=== PATIENT | female | born 1945 | race Caucasian/White ===

== ENCOUNTER → 2022-11-27 12:20 | Outpatient (CLI) | payer MEDICARE, SELFPAY | PROVIDERS: PCP Nurse Practitioner; Visit Provider Student in an Organized Health Care Education/Training Program | DX: N89.8 Other specified noninflammatory disorders of vagina (principal); N39.0 Urinary tract infection, site not specified | CPT/HCPCS: 87077; 87086; 87186; 87210 ==

== ENCOUNTER → 2022-12-12 08:28 | Outpatient (CLI) | payer MEDICARE, SELFPAY ==
--- NOTE | 2022-12-12 08:29 | DI.US.S_ITS ---
PROCEDURE: US PELVIC COMPLETE INDICATIONS: IUD X 30 YEARS; DISCHARGE TECHNIQUE: Real-time scanning was performed of the pelvic organs, with image documentation. Additional endovaginal scanning was necessary due to incomplete visualization of the adnexal and endometrial structures by transabdominal scanning. COMPARISON: None. FINDINGS: Uterus: Uterus is anteverted and normal in size at 6.4 x 4.2 x 4.1 cm. The myometrium is homogeneous. Endometrium not visualized. The IUD is obliquely oriented, passing into the myometrium. Ovaries: Not visualized due to overlying bowel gas. Other: No pathologic free abdominal or pelvic fluid. IMPRESSION: Abnormal placement of the IUD, which passes into the myometrium. We strive to produce accurate, complete, and clear reports of imaging services. To assist us in improving patient care, this report was composed using standard report templates and voice recognition software. Therefore, it may contain abnormal punctuation, insertions and/or omissions. Occasional wrong-word or sound-alike substitutions may occur. Though we review the report and make efforts to correct it, we do recommend that the report be read carefully in proper context to recognize any text inaccuracies. Dictated by: Skyler Myles M.D. on 12/12/2022 at 9:24 Approved by: Skyler Myles M.D. on 12/12/2022 at 9:26
== END ==
PROVIDERS: PCP Nurse Practitioner; Referring Provider Student in an Organized Health Care Education/Training Program; Visit Provider Student in an Organized Health Care Education/Training Program
DX: N89.8 Other specified noninflammatory disorders of vagina (principal); T83.89XA Other specified complication of genitourinary prosthetic devices, implants and grafts, initial encounter
CPT/HCPCS: 76830; 76856

== ENCOUNTER 2023-03-13 06:28 | Day surgery (SDC) | payer MEDICARE, SELFPAY ==
[2023-02-26 11:26] VITALS: BMI 23.3
[2023-03-13] VITALS (7 sets, daily range): BP systolic 118–154; BP diastolic 62–92; PULSE 106–123; RESP 11–18; TEMP 36–36.6; O2SAT 95–100; BMI 23.3
--- NOTE | 2023-03-13 | PATH_ITS ---
[facility] Accession Number: [id number] No. of containers..01 Tissue . 01 Material submitted: . endometrium - ENDOMETRIAL BIOPSY . 01 Diagnosis: Endometrium, Biopsy: Acute and chronic endometritis. Focal features suggestive of Actinomyces granules. Scant benign, inactive endometrial tissue also present. MRV 03/23/2023 1700 Local . 01 Comment: The findings may be secondary to reported intrauterine contraceptive device (per ICD-10 code Z30.432 on the requisition form). . There is scant benign endometrial tissue with inactive/atrophic changes also present. . Clinical correlation is recommended. . 01 Electronically signed: . Gerardo Gates MD, Pathologist NPI- [id number] . 01 Gross description: . ENDOMETRIAL BIOPSY: Received in formalin are minute fragments of mucoid and hemorrhagic material measuring 2.5 x 2.0 x 0.3 cm in aggregate. Submitted in toto in 1 cassette. /AAY 03/16/2023 0551 Local . 01 Pathologist provided ICD-10: N83.10, Z30.432, T83.39XA . 01 CPT . 248153 Specimen Comment: A courtesy copy of this report has been sent to [phone] Performed at: 01 [facility] [address] [place] [address] [facility], [place], [place] [id number] MD Aristeo Brown MD Phone: [phone]
[2023-03-13] MEDS: LACTATED RINGERS 1,000 ML 100 ML IV (07:24)
--- NOTE | 2023-03-13 07:39 | PM.PREOP ---
Pre-operative Note COVID-19 Criteria for continued procedure: Expected advancement of disease process Interval Note History & Physical reviewed/Exam performed by Physician: Yes Changes to H&P: No
[2023-03-13] MEDS: CEFAZOLIN 2 GM/100 ML PREMIX 100 ML IV (08:07)
--- NOTE | 2023-03-13 08:15 | SUR.OPER ---
Lithotomy on padded OR bed, head on pillow, arms secured on padded arm boards at <90 degrees abduction. Legs secured in padded yellow fins stirrups.
[2023-03-13] MEDS: BUPIVACAINE 0.5% (PF) 30 ML, EPINEPHrine 0.15 MG INJ (08:28)
--- NOTE | 2023-03-13 09:12 | PM.OP.1 ---
Operative Date/Time/Diagnoses Date of procedure: 03/13/23 Time of procedure: 09:13 Pre-op diagnosis: Complete uterovaginal prolapse, retained IUD Post-op diagnosis: same Procedure & Clinicians Procedure: LeFort colpocleisis, endometrial biopsy, failed removal of IUD Same procedure as scheduled: Yes (Unable to remove IUD) Indications: Retained IUD, complete uterovaginal prolapse Surgeon: Flor Owens Click Yes if Unassisted: Yes Anesthesia Type: General Operative Notes Findings: Complete uterovaginal prolapse, retained IUD unable to remove Closure Type: primary Specimen(s): other (Endometrial biopsy) Estimated Blood Loss (mL): 50 Blood products transfused: none Procedure in detail: The patient was brought to the operating room where she was in a supine position in low [facility] stirps and underwent a light general anesthetic. She was prepped and draped in the usual sterile fashion. She would emptied her bladder prior to the case. 2 g of Ancef were in prior to beginning of the case. Warming was in place. Pulsatile stockings were in place. A check system was reviewed with the staff in the room prior to beginning the case. Area on anterior and posterior wall of the prolapse were marked with a marking pen and injected with a dilute solution of half percent Marcaine with epinephrine. The skin was incised with a scalpel and undermined with and removed removed with Metzenbaum scissors and cautery. 0 Vicryl suture interrupted was placed from the anterior cervical fascia to the posterior cervical fascia to invert the cervix. 2-0 Vicryl suture was used in a running fashion to close anterior to posterior on the sides creating a tunnel from the cervix to the external area The vaginal incision was closed from anterior to posterior fully inverting the uterus. The area of the posterior vaginal opening was injected with the dilute solution of Marcaine with epi. A wedge-shaped tissue was taken out of the area. The perineal body was built up with interrupted 0 Vicryl suture. The vaginal incision and skin was closed with 2 0 Vicryl suture. Counts of instruments and sponges were correct. Patient went to recovery room in good condition. Complications: none Post-operative Condition: stable Disposition: same day surgery Plan for aftercare: Home when awake and stable
== END 2023-03-13 10:11 | disposition home or self-care (01) ==
PROVIDERS: PCP Nurse Practitioner; Referring Provider Specialist; Visit Provider Specialist
PROC: (CPT 57120; principal; 2023-03-13 07:45)
DX: N81.3 Complete uterovaginal prolapse (principal); Z30.432 Encounter for removal of intrauterine contraceptive device; T83.39XA Other mechanical complication of intrauterine contraceptive device, initial encounter; I49.8 Other specified cardiac arrhythmias; N71.1 Chronic inflammatory disease of uterus; N71.0 Acute inflammatory disease of uterus
CPT/HCPCS: 57120; 93005; J0171; J0690; J1100; J2405; J2704; J3010

== ENCOUNTER → 2023-05-27 08:43 | Outpatient (CLI) | payer MEDICARE, SELFPAY ==
[2023-05-27 10:43] LABS: Alanine Aminotransferase 19 IU/L (<35); Albumin 4.2 g/dL (3.5-5.0); Albumin Globulin Ratio 1.3 (1.0-2.8); Alkaline Phosphatase 89 U/L (38-126); Aspartate Aminotransferase 28 IU/L (14-36); BUN Creatinine Ratio 19.3 (6-22); Bilirubin Total 0.7 mg/dL (0.2-1.3); Blood Urea Nitrogen 17 mg/dL (7-17); Calcium 9.5 mg/dL (8.4-10.2); Carbon Dioxide 27 mmol/L (22-32); Chloride 104 mmol/L (98-107); Cholesterol 145 mg/dL (140-199); Estimated Glomerular Filt Rate > 60 mL/min (>60); Globulin 3.2 g/dL (1.7-4.1); Glucose 78 mg/dL (80-110); HDL Cholesterol 67 mg/dL (40-60); HEMOLYSIS < 15 (0-50); LDL Cholesterol Calculated 61 mg/dL (<100); Potassium 4.7 mmol/L (3.4-5.1); Sodium 139 mmol/L (137-145); Total Protein 7.4 g/dL (6.3-8.2); Triglycerides 83 mg/dL (35-150)
[2023-05-27 10:50] LABS: Free T3, Triiodothyronine Free 3.64 pg/mL (2.77-5.27); Free T4, Direct Thyroxine 1.25 ng/dL (0.78-2.19)
[2023-05-27 11:04] LABS: Thyroid Stimulating Hormone 2.54 uIU/mL (0.47-4.68)
== END ==
PROVIDERS: PCP Nurse Practitioner; Referring Provider Nurse Practitioner; Visit Provider Nurse Practitioner
DX: E78.5 Hyperlipidemia, unspecified (principal); Z79.899 Other long term (current) drug therapy
CPT/HCPCS: 36415; 80053; 80061; 84439; 84443; 84481